=== PATIENT | female | born 1970 | race Asian ===

== ENCOUNTER 2020-02-13 11:53 | Emergency (ER) | payer OTHER ==
[~2020-02-13] VITALS: Ht 160 cm; Wt 61.2 kg
[2020-02-13 12:03] VITALS: BP 133/75
--- NOTE | 2020-02-13 12:30 | NUR ---
COVID19 TESTING DONE & SENT TO LAB.
== END 2020-02-13 12:31 | disposition home or self-care (01) ==
LOC: ER 11:53
DX: Z03.818 Encounter for observation for suspected exposure to other biological agents ruled out (principal)
CPT/HCPCS: 99283; C9803; U0003

== ENCOUNTER 2020-07-09 12:25 | Outpatient (CLI) | payer BC | END 2020-07-09 23:59 | disposition home or self-care (01) | LOC: RAD 12:25 | DX: D39.2 Neoplasm of uncertain behavior of placenta (principal) | CPT/HCPCS: 71046 ==